=== PATIENT | female | born 1995 | race Caucasian/White ===

== ENCOUNTER 2021-05-30 17:00 | Emergency (ER) | payer BC ==
[~2021-05-30] VITALS: Ht 165.1 cm; Wt 59.1 kg
[2021-05-30 17:43] VITALS: BP 107/62
[2021-05-30] MEDS ORDERED: CEPH250T PO (17:48)
== END 2021-05-30 17:56 | disposition home or self-care (01) ==
LOC: ER 17:01
DX: L03.116 Cellulitis of left lower limb (principal); Z79.2 Long term (current) use of antibiotics
CPT/HCPCS: 99283